=== PATIENT | male | born 1995 | race Caucasian/White ===

== ENCOUNTER 2016-05-07 14:48 | Emergency (ER) | payer SELFPAY ==
[2016-05-07 15:14] VITALS: BP 115/89
--- NOTE | 2016-05-07 16:24 | ERNOTE ---
Medical Problem HPI - Narrative Date of Service: 05/07/16 - General Chief Complaint: Nausea/Vomiting Time Seen by Provider: 05/07/16 16:10 Source: patient, RN notes reviewed Exam Limitations: no limitations - Immun/Allergies/Home Medications Immunizations: IMMUNIZATION HX Immunizations Up to Date Yes History of Influenza Vaccine No Hx Pneumococcal Vaccination No Allergies/Adverse Reactions: Allergies No Known Allergies Allergy (Verified 05/07/16 15:14) Home Medications: HOME MEDICATIONS NK [No Home Medication] 05/07/16 [Last Taken Unknown] - History of Present History Narrative: 20 y/o male ambulatory to the ED for vomiting and diarrhea. His vomiting has stopped today but he continues to have nausea. He has been tolerating liquids without incident. He reports pain in his right lateral upper abdomen and chest. This is worse with coughing and movement. He reports that his mother has similar symptoms as well. Date (Duration): 05/05/16 Time (Timing): 23:00 Review of Systems - Review of Systems Constitutional: Present: fatigue, malaise. Absent: fever, chills EYE: Present: no symptoms reported ENT: Present: no symptoms reported Respiratory: Present: cough. Absent: shortness of breath, wheezing Cardiology: Absent: palpitations, syncope Gastrointestinal/Abdominal: Present: nausea, abdominal pain, eating less. Absent: drinking less Genitourinary: Absent: dysuria, decreased urinary output Musculoskeletal: Absent: back pain, muscle pain Skin: Absent: rash, lesions Neurological: Absent: headache, dizziness/light-headedness Endocrine: Present: no symptoms reported Hematologic/Lymphatic: Present: no symptoms reported Psych: Present: no symptoms reported - Patient's Past Medical History Patient History - Medical: Anxiety, Depression, Other Patient History - Cardiac/Respiratory: No pertinent hx Patient History - Cancer: No Hx of Cancer Patient History - Surgical Procedures: Other Patient History - Other: None - Family History Mother Family History - Medical: Anxiety, Depression - Social History Living Situations: home Abuse History: No History of abuse Psych History: Hx of Anxiety, Hx of Depression, Current tx/ever been on anti- depressants or anti-anxiety meds Smoking Status: Current every day smoker Cigarettes Packs Per Day: 0.5 Have you smoked in the past 12 months: Yes Alcohol Use: heavy Drug Use: marijuana - Immunizations Immunizations Up to Date: Yes Hx Pneumococcal Vaccination: No History of Influenza Vaccine: No Physical Exam - Physical Exam General Appearance: Present: wd/wn, alert, no apparent distress Eye Exam: Normal inspection: bilateral Neck: Present: normal inspection, nontender, supple Respiratory: Present: no respiratory distress, normal breath sounds, no accessory muscle use, lungs clear, chest tenderness - right lower lateral chest Cardiovascular/Chest: Present: regular rate, rhythm, no murmur, normal peripheral pulses Gastrointestinal/Abdominal: Present: normal bowel sounds, nondistended, soft, no organomegaly, tenderness - right upper lateral abdomen - mild Neurological Exam: Present: alert, oriented, normal mood/affect Skin Exam: Present: normal color, warm/dry ED Progress - Vital Signs Patient's Vital Signs:: I have reviewed the patient's vital signs. Vital Signs: Vital Signs 05/07/16 15:09 Temperature 36.4 C L Pulse Rate 92 Respiratory 16 Rate Blood Pressure 115/89 O2 Sat by Pulse 98 Oximetry - Progress/Reassessment Chief Complaint: Nausea/Vomiting Progress:: Unchanged Departure - Departure Clinical Impression: Viral gastroenteritis Condition: Good Instructions: Viral Gastroenteritis, Adult, [id number], Form - Excuse from Work, School, or Physical Activity
--- OUTSIDE RECORDS SUMMARY | 2016-05-07 16:25 | XMS REPORT | Continuity of Care Document ---
:1995 Author Organization [facility] ([facility]) Address [address] [place] [address] Phone [phone] Care Team Providers Name Role Phone Provider, No-Primary Care Primary Care Provider Unavailable Source Comments This disclosure is being made pursuant to the Care Everywhere program, applicable federal and state laws, and may not contain all informaitonavailable regarding this patient.[facility] ([facility]) Active Allergies and Adverse Reactions No Known Allergies Current Medications No known medications Active Problems Problem Noted Date Polysubstance abuse 05/19/2010 Suicidal ideation 05/19/2010 Depression 05/18/2010 Overdose of drug 05/18/2010 Social History Tobacco Use Types Packs/Day Years Used Date Current Every Day Smoker 1 4 Smokeless Tobacco: Never Used Alcohol Use Drinks/Week oz/Week Comments No Last Filed Vital Signs Vital Sign Reading Time Taken Blood Pressure 124/60 11/21/2010 1:52 PM CDT Pulse 77 11/21/2010 1:52 PM CDT Temperature 35.8 C (96.4 F) 11/21/2010 1:52 PM CDT Respiratory Rate 16 11/21/2010 1:52 PM CDT Height 1.72 m (5' 7.72") 05/18/2010 10:14 PM [employer]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 Weight 74.2 kg (163 lb 9.3 oz) 05/23/2010 9:33 AM [employer]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
--- OUTSIDE RECORDS SUMMARY | 2016-05-07 16:25 | XMS REPORT | Continuity of Care Document ---
:1995 Author Organization [facility] [place] [address] Care Team Providers Name Role Phone Unavailable Primary Care Provider Unavailable Source Comments This disclosure is being made pursuant to the swabr program and maynot contain all information available regarding this patient.[employer] Active Allergies and Adverse Reactions Not on File Current Medications Be aware that medications may not be up to date as of this document. Alwaysverify current medications with the patient. Not on file Active Problems Not on file Social History Tobacco Use Types Packs/Day Years Used Date Never Assessed Plan of Care Health Maintenance Due Date Last Done Comments HPV Vaccine ([id number]) (1 of 3 - Male 3 Dose Series) 2004 Retired-Tetanus Vaccine Adult 2012 Retired-INFLUENZA VACCINE 11/19/2014 Results from Last 3 Months Not on file
== END 2016-05-07 16:36 | disposition home or self-care (01) ==
LOC: ER 14:48
DX: A08.4 Viral intestinal infection, unspecified (principal); Z72.0 Tobacco use